=== PATIENT | female | born 2000 | race Caucasian/White ===

== ENCOUNTER 2022-03-28 17:30 | Emergency (ER) | payer OTHER, BC ==
[~2022-03-28] VITALS: Ht 162.6 cm; Wt 93.4 kg
[2022-03-28] MEDS ORDERED: FERROUS SU220 MG/52 PO (18:40)
[2022-03-28] MEDS ORDERED: LEVOTHYROXINE25 MCG PO (18:40)
[2022-03-28] MEDS ORDERED: LIDODERM1 EACH TD (18:50)
[2022-03-28] MEDS ORDERED: NAPROSYN500 MG PO (18:50)
== END 2022-03-28 19:19 | disposition home or self-care (01) ==
LOC: ED 17:30
DX: S46.812A Strain of other muscles, fascia and tendons at shoulder and upper arm level, left arm, initial encounter (principal); X50.0XXA Overexertion from strenuous movement or load, initial encounter; Y99.0 Civilian activity done for income or pay; Z79.899 Other long term (current) drug therapy
CPT/HCPCS: 99283